=== PATIENT | female | born 1995 | race Caucasian/White ===

== ENCOUNTER 2017-06-18 22:03 | Emergency (ER) | payer OTHER ==
[2017-06-19 01:35] VITALS: BP 115/65
== END 2017-06-19 01:35 | disposition home or self-care (01) ==
LOC: ED 22:03
DX: S09.90XA Unspecified injury of head, initial encounter (principal); R42 Dizziness and giddiness; R03.0 Elevated blood-pressure reading, without diagnosis of hypertension; X58.XXXA Exposure to other specified factors, initial encounter; Y93.89 Activity, other specified; Y99.8 Other external cause status; Y92.89 Other specified places as the place of occurrence of the external cause